=== PATIENT | female | born 1940 | race Caucasian/White ===

== ENCOUNTER 2024-01-18 14:55 | Inpatient (IN) | payer BC, MEDICARE ==
[~2024-01-18] VITALS: Ht 165.1 cm; Wt 58.6 kg
[2024-01-18 15:14] LABS: BASOPHILS % (AUTO) 0.1 % (0.0-2.0); DIFFERENTIAL COMMENT 0; EOSINOPHILS % (AUTO) 0.4 % (0.0-7.0); HEMATOCRIT 29.3 % (31.2-41.9); HEMOGLOBIN 9.9 g/dL (10.9-14.3); LYMPHOCYTES # (AUTO) 0.5 K/uL (0.8-4.8); LYMPHOCYTES % (AUTO) 8.4 % (20.5-51.5); MEAN CORPUSCULAR HEMOGLOBIN 34.4 uug (24.7-32.8); MEAN CORPUSCULAR HGB CONC 34 g/dL (32.3-35.6); MEAN CORPUSCULAR VOLUME 101.2 fL (75.5-95.3); MONOCYTES # (AUTO) 0.5 K/uL (0.1-1.30); MONOCYTES % (AUTO) 7.7 % (0.0-11.0); NEUTROPHILS % (AUTO) 83.4 % (38.5-71.5); PLATELET COUNT (AUTO) 175 K/uL (179-408); RED BLOOD CELL COUNT(AUTO) 2.89 MIL/uL (3.63-4.92); RED CELL DISTRIBUTION WIDTH 12.6 % (12.3-17.7)
[2024-01-18 15:22] LABS: CALCIUM 9.7 mg/dL (8.5-10.1); CARBON DIOXIDE 29 mmol/L (21-32); CHLORIDE 105 mmol/L (98-107); CREATININE 1.3 mg/dL (0.6-1.3); GLUCOSE 95 mg/dL (74-106); POTASSIUM 4.1 mmol/L (3.5-5.1); SODIUM SERUM 141 mmol/L (136-145); UREA NITROGEN, BLOOD 24 mg/dL (7-18)
[2024-01-18] MEDS ORDERED: FLUD0.1T PO (15:23)
[2024-01-18] MEDS ORDERED: SENN8.6T19 PO (15:23)
[2024-01-18] MEDS ORDERED: PYRI60TA PO (15:23)
[2024-01-18] MEDS ORDERED: MIRT-73 PO (15:23)
[2024-01-18] MEDS ORDERED: BOOST VANILLA PO (15:23)
[2024-01-18] MEDS ORDERED: DICLOFENAC 1% GEL (15:23)
[2024-01-18] MEDS ORDERED: BISA-79 PO (15:23)
[2024-01-18] MEDS ORDERED: POLY17PO4 PO (15:23)
[2024-01-18] MEDS ORDERED: AMLO-212 PO (15:23)
[2024-01-18] MEDS ORDERED: MULT-594 PO (15:23)
[2024-01-18] MEDS ORDERED: METH1TAB69 PO (15:23)
[2024-01-18] MEDS ORDERED: ACET325C7 PO (15:23)
[2024-01-18] MEDS ORDERED: MAGN400C PO (15:23)
[2024-01-18] MEDS ORDERED: LEVO75TA7 PO (15:23)
[2024-01-18 15:30] LABS: ALANINE AMINOTRANSFERASE 18 U/L (14-59); ALBUMIN 3.2 g/dL (3.4-5.0); ALKALINE PHOSPHATASE 54 U/L (50-136); ASPARTATE AMINOTRANSFERASE 22 U/L (15-37); BILIRUBIN,DIRECT 0.1 mg/dL (0.0-0.2); BILIRUBIN,TOTAL 0.2 mg/dL (0.2-1.0); TOTAL PROTEIN, SERUM 7.3 g/dL (6.4-8.2)
[2024-01-18 15:48] LABS: *BILIRUBIN,URIN NEGATIVE (NEGATIVE); *BLOOD, URINE NEGATIVE (NEGATIVE); *CLARITY,URINE CLEAR (CLEAR); *COLOR,URINE YELLOW (YELLOW); *KETONES,URINE TRACE (NEGATIVE); *PROTEIN,URINE 1+ (NEGATIVE); *UROBILINOGEN,URINE 0.2 E.U./dl (NORMAL); LEUKOCYTE ESTERASE ,URINE NEGATIVE (NEGATIVE); NITRITE, URINE NEGATIVE (NEGATIVE); UGLUCOSE NEGATIVE (NEGATIVE)
[2024-01-18] MEDS: IV NORMAL SALINE 1000 ML BAG IV ONE (15:49)
[2024-01-18 15:53] LABS: MAGNESIUM 2.2 mg/dL (1.8-2.4)
[2024-01-18 16:21] LABS: IRON, SERUM 38 ug/dL (50-175)
[2024-01-18] MEDS ORDERED: MAG HYDROX/AL HYDROX/SIMETH 30 ML LIQUID UDC ONE (16:24)
[2024-01-18 16:30] LABS: BACTERIA,URINE FEW /HPF (NONE SEEN); RBC,URINE NONE SEEN /HPF (0-3); SQUAMOUS EPITHELIAL CELL,UR FEW /HPF (NONE SEEN); WBC,URINE 0-3 /HPF (0-3)
[2024-01-18 16:31] LABS: URINE AMORPHOUS URATE MODERATE /HPF
[2024-01-18] MEDS ORDERED: MAGNESIUM HYDROXIDE 30 ML LIQUID UDC ONE (16:44)
[2024-01-18] MEDS: MAGNESIUM HYDROXIDE 30 ML LIQUID UDC PO ONE (16:46)
[2024-01-18] MEDS ORDERED: MIRT-93 PO (17:07)
[2024-01-18] MEDS ORDERED: BISACODYL 5 MG TABLET.DR PO PRN (18:30)
[2024-01-18] MEDS ORDERED: Medication Not On Formulary EA (Acetaminophen (Tylenol) 650 MG) PO SCH (18:30)
[2024-01-18] MEDS ORDERED: LORAZEPAM 2 MG/1 ML VIAL IV PRN (18:30)
[2024-01-18] MEDS ORDERED: FLEET ENEMA 133 ML BOTTLE RC PRN (18:30)
[2024-01-18] MEDS ORDERED: ONDANSETRON 4 MG/2 ML VIAL IV PRN (18:30)
[2024-01-18] MEDS ORDERED: TEMAZEPAM 15 MG CAPSULE PO PRN (18:30)
[2024-01-18] MEDS ORDERED: ACETAMINOPHEN 325 MG TABLET PO PRN (18:30)
[2024-01-18 18:45] VITALS: BP 136/57; TEMP 97.6; O2SAT 96
[2024-01-18] MEDS ORDERED: OLANZAPINE 10 MG VIAL IM PRN (20:00)
[2024-01-18 20:14] VITALS: BP 137/65; TEMP 98; O2SAT 96
[2024-01-18] MEDS: PYRIDOSTIGMINE BROMIDE 60 MG TABLET PO SCH (20:33)
[2024-01-18] MEDS: IV D5 1/2 NS 1000 ML 1,000 ML IV PRN (20:43)
[2024-01-18] MEDS: MIRTAZAPINE 15 MG TABLET PO SCH (21:37)
[2024-01-18] MEDS: SENNOSIDES 1 TABLET PO SCH (21:37)
[2024-01-18] MEDS: PIPERACILLIN SODIUM/TAZOBACTAM 3.375 G in IV DEXTROSE 5% 100 ML IV SCH (21:39)
[2024-01-18] MEDS ORDERED: PIPERACILLIN SODIUM/TAZOBACTAM 3.375 G in IV DEXTROSE 5% 50 ML IV SCH (22:00)
[2024-01-19] VITALS (7 sets, daily range): BP systolic 122–142; BP diastolic 63–80; TEMP 97.4–98.3; O2SAT 95–98
[2024-01-19] MEDS: LEVOTHYROXINE SODIUM 75 MCG TABLET PO SCH (06:04)
[2024-01-19 06:57] LABS: BASOPHILS % (AUTO) 0.1 % (0.0-2.0); EOSINOPHILS % (AUTO) 0.3 % (0.0-7.0); HEMATOCRIT 31.8 % (31.2-41.9); HEMOGLOBIN 10.8 g/dL (10.9-14.3); LYMPHOCYTES # (AUTO) 0.5 K/uL (0.8-4.8); LYMPHOCYTES % (AUTO) 8.6 % (20.5-51.5); MEAN CORPUSCULAR HEMOGLOBIN 34.5 uug (24.7-32.8); MEAN CORPUSCULAR HGB CONC 34 g/dL (32.3-35.6); MEAN CORPUSCULAR VOLUME 101.8 fL (75.5-95.3); MONOCYTES # (AUTO) 0.4 K/uL (0.1-1.30); MONOCYTES % (AUTO) 6.8 % (0.0-11.0); NEUTROPHILS # (AUTO) 4.8 K/uL (1.8-8.9); NEUTROPHILS % (AUTO) 84.2 % (38.5-71.5); PLATELET COUNT (AUTO) 188 K/uL (179-408); RED BLOOD CELL COUNT(AUTO) 3.13 MIL/uL (3.63-4.92); RED CELL DISTRIBUTION WIDTH 12.4 % (12.3-17.7); WHITE BLOOD COUNT (AUTO) 5.7 K/uL (3.8-11.8)
[2024-01-19 07:13] LABS: DIFFERENTIAL COMMENT 1
[2024-01-19 07:20] LABS: ALANINE AMINOTRANSFERASE 21 U/L (14-59); ALBUMIN 3.1 g/dL (3.4-5.0); ALKALINE PHOSPHATASE 53 U/L (50-136); ASPARTATE AMINOTRANSFERASE 33 U/L (15-37); BILIRUBIN,TOTAL 0.3 mg/dL (0.2-1.0); CARBON DIOXIDE 28 mmol/L (21-32); CHLORIDE 105 mmol/L (98-107); CHOLESTEROL 185 mg/dL (<200); CREATININE 1.2 mg/dL (0.6-1.3); GLUCOSE 109 mg/dL (74-106); HDL CHOLESTEROL 70 mg/dL (40-60); MAGNESIUM 2.7 mg/dL (1.8-2.4); PHOSPHOROUS 1.8 mg/dL (2.5-4.9); POTASSIUM 3.5 mmol/L (3.5-5.1); SODIUM SERUM 141 mmol/L (136-145); TOTAL PROTEIN, SERUM 7.2 g/dL (6.4-8.2); TRIGLYCERIDES 96 MG/DL (30-150); UREA NITROGEN, BLOOD 17 mg/dL (7-18)
[2024-01-19 07:38] LABS: *OCCULT BLOOD STOOL NEGATIVE (NEGATIVE)
[2024-01-19 07:45] LABS: THYROID STIMULATING HORMONE 3.379 mIU/mL (0.358-3.740)
[2024-01-19] MEDS: FLUDROCORTISONE ACETATE 0.1 MG TABLET PO SCH ×2 (08:25→16:35)
[2024-01-19] MEDS: MIRALAX 17 GM POWD.PACK PO SCH (08:25)
[2024-01-19] MEDS: MULTIVIT, IRON, MIN NO. 8, FA TABLET PO SCH (08:25)
[2024-01-19] MEDS: REMEDY ESSENTIAL ZINC PASTE 113 GM TOP SCH (08:26)
[2024-01-19] MEDS: AMLODIPINE 5 MG TABLET PO SCH (08:29)
[2024-01-19] MEDS ORDERED: MAGNESIUM OXIDE 400 MG TABLET PO SCH ×2 (09:00)
[2024-01-19] MEDS ORDERED: Methenamine Hippurate 1 GM) PO SCH (09:00)
[2024-01-19] MEDS: POTASSIUM PHOSPHATE MM 7.5 MMOL in IV NORMAL SALINE 97.5 ML IV ONE (10:57)
[2024-01-19] MEDS: DOCUSATE SODIUM 100 MG CAPSULE PO SCH (21:59)
[2024-01-20] VITALS (10 sets, daily range): BP systolic 131–162; BP diastolic 63–100; TEMP 97.6–98.1; O2SAT 94–99
[2024-01-20 06:39] LABS: BASOPHILS % (AUTO) 0.3 % (0.0-2.0); EOSINOPHILS # (AUTO) 0.1 K/uL (0.0-0.7); EOSINOPHILS % (AUTO) 1.8 % (0.0-7.0); HEMATOCRIT 34.1 % (31.2-41.9); HEMOGLOBIN 11.2 g/dL (10.9-14.3); LYMPHOCYTES # (AUTO) 1.1 K/uL (0.8-4.8); LYMPHOCYTES % (AUTO) 26.4 % (20.5-51.5); MEAN CORPUSCULAR HEMOGLOBIN 34.6 uug (24.7-32.8); MEAN CORPUSCULAR HGB CONC 33 g/dL (32.3-35.6); MEAN CORPUSCULAR VOLUME 105.7 fL (75.5-95.3); MONOCYTES # (AUTO) 0.4 K/uL (0.1-1.30); MONOCYTES % (AUTO) 10.6 % (0.0-11.0); NEUTROPHILS # (AUTO) 2.4 K/uL (1.8-8.9); NEUTROPHILS % (AUTO) 60.9 % (38.5-71.5); PLATELET COUNT (AUTO) 173 K/uL (179-408); RED BLOOD CELL COUNT(AUTO) 3.23 MIL/uL (3.63-4.92); RED CELL DISTRIBUTION WIDTH 12.9 % (12.3-17.7)
[2024-01-20 06:58] LABS: DIFFERENTIAL COMMENT 1
[2024-01-20 07:18] LABS: CALCIUM 9.1 mg/dL (8.5-10.1); CARBON DIOXIDE 27 mmol/L (21-32); CHLORIDE 108 mmol/L (98-107); CREATININE 1.3 mg/dL (0.6-1.3); GLUCOSE 91 mg/dL (74-106); MAGNESIUM 2.6 mg/dL (1.8-2.4); PHOSPHOROUS 2.6 mg/dL (2.5-4.9); POTASSIUM 3.5 mmol/L (3.5-5.1); SODIUM SERUM 142 mmol/L (136-145); UREA NITROGEN, BLOOD 13 mg/dL (7-18)
[2024-01-20] MEDS: POTASSIUM CHLORIDE 20 MEQ TAB.PRT.SR PO ONE (10:44)
[2024-01-20] MEDS: ENSURE ENLIVE (VAN) 240 ML LIQUID PO SCH (16:32)
[2024-01-21] MEDS ORDERED: LORAZEPAM 2 MG/1 ML VIAL IV PRN (06:30)
[2024-01-21 08:00] VITALS: BP 140/70; TEMP 98; O2SAT 97
[2024-01-21 12:00] VITALS: BP 139/67; TEMP 97.6; O2SAT 96
[2024-01-21 17:16] VITALS: BP 139/68; TEMP 98.4; O2SAT 95
[2024-01-21 20:28] VITALS: BP 150/70; TEMP 97.5; O2SAT 96
[2024-01-22] MEDS ORDERED: LACT-246 PO (10:10)
== END 2024-01-21 20:40 | DRG 73 ==
LOC: ER 14:55 → TELE3 16:52 → MEDSURG3 01-20 09:55
PROVIDERS: ADMIT Internal Medicine; ATTEND Internal Medicine
DX: G90.9 Disorder of the autonomic nervous system, unspecified (principal); G92.8 Other toxic encephalopathy; N17.0 Acute kidney failure with tubular necrosis; A04.9 Bacterial intestinal infection, unspecified; K92.2 Gastrointestinal hemorrhage, unspecified; I95.1 Orthostatic hypotension; K56.41 Fecal impaction; E83.39 Other disorders of phosphorus metabolism; E87.6 Hypokalemia; E78.5 Hyperlipidemia, unspecified; M81.0 Age-related osteoporosis without current pathological fracture; D53.9 Nutritional anemia, unspecified; M15.9 Polyosteoarthritis, unspecified; G30.9 Alzheimer's disease, unspecified; F02.C0 Dementia in other diseases classified elsewhere, severe, without behavioral disturbance, psychotic disturbance, mood disturbance, and anxiety; E03.9 Hypothyroidism, unspecified; Z79.890 Hormone replacement therapy; I34.0 Nonrheumatic mitral (valve) insufficiency; Z87.440 Personal history of urinary (tract) infections; I10 Essential (primary) hypertension
CPT/HCPCS: 36415; 70450; 71045; 74018; 82378; 83550; 83605; 83735; 84100; 84443; 84484; 85025; 85730; 93307; A4663; C1758; G0378; J2543; J3490; J7040

== ENCOUNTER 2024-01-21 15:31 | Inpatient (IN) | payer MEDICARE ==
[~2024-01-21] VITALS: Ht 162.6 cm; Wt 53.2 kg
[~2024-01-21 15:31] MED LIST: ACET325C7 PO; AMLO-212 PO; BISA-79 PO; BOOST VANILLA PO; DICLOFENAC 1% GEL; FLUD0.1T PO; LEVO75TA7 PO; MAGN400C PO; METH1TAB69 PO; MIRT-93 PO; MULT-594 PO; POLY17PO4 PO; PYRI60TA PO; SENN8.6T19 PO
[2024-01-21] MEDS ORDERED: FLEET ENEMA 133 ML BOTTLE RC PRN (22:30)
[2024-01-21] MEDS ORDERED: ONDANSETRON HCL 4 MG TABLET PO PRN (22:30)
[2024-01-21] MEDS ORDERED: OLANZAPINE 2.5 MG TABLET PO SCH (22:30)
[2024-01-21] MEDS: PIPERACILLIN SODIUM/TAZOBACTAM 3.375 G in IV DEXTROSE 5% 50 ML IV SCH ×2 (22:30→23:00)
[2024-01-21] MEDS: DOCUSATE SODIUM 100 MG CAPSULE PO SCH (22:30)
[2024-01-22 01:34] VITALS: BP 152/65; TEMP 98; O2SAT 97
[2024-01-22] MEDS ORDERED: OLANZAPINE 2.5 MG TABLET PO PRN (05:23)
[2024-01-22] MEDS ORDERED: LACT-246 PO (10:10)
[2024-01-22] MEDS ORDERED: BISACODYL 5 MG TABLET.DR PO PRN (10:45)
[2024-01-22] MEDS: MIRALAX 17 GM POWD.PACK PO SCH (10:45)
[2024-01-22] MEDS: FLUDROCORTISONE ACETATE 0.1 MG TABLET PO SCH (11:50)
[2024-01-22] MEDS: LEVOTHYROXINE SODIUM 75 MCG TABLET PO SCH (11:51)
[2024-01-22] MEDS: AMLODIPINE 5 MG TABLET PO SCH (11:51)
[2024-01-22] MEDS: PYRIDOSTIGMINE BROMIDE 60 MG TABLET PO SCH (11:52)
[2024-01-22 16:00] VITALS: BP 166/79
[2024-01-22 16:03] VITALS: BP 127/57; TEMP 98.6; O2SAT 96
[2024-01-22 20:50] VITALS: BP 152/63; TEMP 98.5; O2SAT 96
[2024-01-22] MEDS: MIRTAZAPINE 15 MG TABLET PO SCH (21:46)
[2024-01-22] MEDS: SENNOSIDES 1 TABLET PO SCH (21:47)
[2024-01-22] MEDS: TEMAZEPAM 15 MG CAPSULE PO PRN (23:18)
[2024-01-23 06:13] VITALS: BP 117/68; TEMP 97.6; O2SAT 96
[2024-01-23 09:30] VITALS: BP_SYST 138; BP_SYST 141; BP_SYST 145; BP_DIAS 64; BP_DIAS 76; BP_DIAS 86
[2024-01-23 15:31] VITALS: BP 146/73; TEMP 97.9; O2SAT 96
[2024-01-23 20:03] VITALS: BP 163/108; TEMP 98.6; O2SAT 93
[2024-01-23 20:04] VITALS: BP 149/76; O2SAT 94
[2024-01-23 20:06] VITALS: BP 137/80; O2SAT 96
[2024-01-24 06:58] VITALS: BP 169/72; TEMP 98.4; O2SAT 97
[2024-01-24 08:45] VITALS: BP_SYST 127; BP_SYST 168; BP_SYST 170; BP_DIAS 70; BP_DIAS 86; BP_DIAS 90
[2024-01-24] MEDS: AMLODIPINE 5 MG TABLET PO SCH (08:51)
[2024-01-24 09:35] VITALS: BP 125/62
[2024-01-24 16:00] VITALS: BP 157/77; TEMP 97.9; O2SAT 95
[2024-01-24 17:00] VITALS: BP_SYST 152; BP_SYST 154; BP_SYST 163; BP_DIAS 74; BP_DIAS 78; BP_DIAS 83
[2024-01-24 20:08] VITALS: BP 166/79; TEMP 98.2; O2SAT 94
[2024-01-25] VITALS (7 sets, daily range): BP systolic 128–158; BP diastolic 52–87; TEMP 97.7–98.8; O2SAT 94–95
[2024-01-25] MEDS: ENSURE WITH FIBER 237 ML LIQUID (CHOCOLATE) PO SCH (09:00)
[2024-01-25] MEDS: CLOTRIMAZOLE 1% CREAM 30 GM TUBE TOP SCH (17:29)
[2024-01-26 06:20] VITALS: BP 150/86; TEMP 97.5; O2SAT 94
[2024-01-26 08:45] VITALS: BP_SYST 113; BP_SYST 120; BP_SYST 132; BP_DIAS 56; BP_DIAS 66; BP_DIAS 81
[2024-01-26 16:00] VITALS: BP_SYST 113; BP_SYST 129; BP_SYST 141; BP_DIAS 71; BP_DIAS 74
[2024-01-26 20:00] VITALS: BP 133/55; TEMP 98.1; O2SAT 93
[2024-01-26 22:00] VITALS: BP_SYST 159; BP_SYST 161; BP_SYST 181; BP_DIAS 78; BP_DIAS 88; BP_DIAS 90
[2024-01-27 06:55] VITALS: BP 159/90; TEMP 97.4; O2SAT 96
[2024-01-27 08:00] VITALS: BP_SYST 142; BP_SYST 154; BP_SYST 157; BP_DIAS 72; BP_DIAS 77; BP_DIAS 80
[2024-01-27] MEDS: AMLODIPINE 2.5 MG TABLET PO SCH (08:12)
[2024-01-27] MEDS: CLOTRIMAZOLE/BETAMET DIPROP CREAM 15 GM TUBE TOP SCH (13:49)
[2024-01-27 16:00] VITALS: BP_SYST 126; BP_SYST 147; BP_SYST 152; BP_DIAS 80; BP_DIAS 81; BP_DIAS 86; TEMP 98.3
[2024-01-27 20:00] VITALS: BP_SYST 156; BP_SYST 157; BP_SYST 160; BP_DIAS 70; BP_DIAS 72; BP_DIAS 73
[2024-01-27 20:01] VITALS: BP 160/73; TEMP 98.3; O2SAT 98
[2024-01-28 05:10] VITALS: BP 161/74; TEMP 98.2; O2SAT 95
[2024-01-28 16:12] VITALS: BP 132/66; TEMP 97.9; O2SAT 98
[2024-01-28] MEDS ORDERED: MIRALAX 17 GM POWD.PACK PO PRN (18:45)
[2024-01-28 19:35] VITALS: BP 132/66; TEMP 97.7; O2SAT 97
[2024-01-28 20:00] VITALS: BP_SYST 123; BP_SYST 126; BP_SYST 132; BP_DIAS 60; BP_DIAS 61; BP_DIAS 66
[2024-01-29 06:08] VITALS: BP 187/97; TEMP 97.3; O2SAT 99
[2024-01-29 07:29] LABS: BASOPHILS % (AUTO) 0.2 % (0.0-2.0); EOSINOPHILS # (AUTO) 0.1 K/uL (0.0-0.7); EOSINOPHILS % (AUTO) 1.4 % (0.0-7.0); HEMATOCRIT 28.1 % (31.2-41.9); HEMOGLOBIN 9.9 g/dL (10.9-14.3); LYMPHOCYTES # (AUTO) 0.8 K/uL (0.8-4.8); LYMPHOCYTES % (AUTO) 19.2 % (20.5-51.5); MEAN CORPUSCULAR HEMOGLOBIN 35.1 uug (24.7-32.8); MEAN CORPUSCULAR HGB CONC 35 g/dL (32.3-35.6); MEAN CORPUSCULAR VOLUME 99.6 fL (75.5-95.3); MONOCYTES # (AUTO) 0.3 K/uL (0.1-1.30); MONOCYTES % (AUTO) 7.3 % (0.0-11.0); NEUTROPHILS # (AUTO) 3.2 K/uL (1.8-8.9); NEUTROPHILS % (AUTO) 71.9 % (38.5-71.5); PLATELET COUNT (AUTO) 197 K/uL (179-408); RED BLOOD CELL COUNT(AUTO) 2.82 MIL/uL (3.63-4.92); RED CELL DISTRIBUTION WIDTH 12.5 % (12.3-17.7); WHITE BLOOD COUNT (AUTO) 4.4 K/uL (3.8-11.8)
[2024-01-29 07:37] VITALS: BP 159/78; TEMP 98; O2SAT 96
[2024-01-29 07:41] LABS: DIFFERENTIAL COMMENT 1
[2024-01-29 07:49] LABS: ALANINE AMINOTRANSFERASE 18 U/L (14-59); ALBUMIN 2.6 g/dL (3.4-5.0); ALKALINE PHOSPHATASE 52 U/L (50-136); ASPARTATE AMINOTRANSFERASE 20 U/L (15-37); BILIRUBIN,TOTAL 0.2 mg/dL (0.2-1.0); CALCIUM 9.1 mg/dL (8.5-10.1); CARBON DIOXIDE 30 mmol/L (21-32); CHLORIDE 107 mmol/L (98-107); CREATININE 1.2 mg/dL (0.6-1.3); GLUCOSE 120 mg/dL (74-106); MAGNESIUM 2.2 mg/dL (1.8-2.4); PHOSPHOROUS 2.2 mg/dL (2.5-4.9); SODIUM SERUM 144 mmol/L (136-145); TOTAL PROTEIN, SERUM 6.7 g/dL (6.4-8.2); UREA NITROGEN, BLOOD 20 mg/dL (7-18)
[2024-01-29 07:54] LABS: IRON, SERUM 58 ug/dL (50-175)
[2024-01-29] MEDS: POTASSIUM CHLORIDE 20 MEQ POWDER PACKET PO SCH (12:16)
[2024-01-29 16:00] VITALS: BP 106/49; TEMP 98.1; O2SAT 96
[2024-01-29] MEDS: NEUTRA PHOS PACKET PO ONE (16:03)
[2024-01-29 20:00] VITALS: BP 144/64; TEMP 98.1; O2SAT 95
[2024-01-29 21:49] VITALS: BP_SYST 126; BP_SYST 147; BP_SYST 149; BP_DIAS 63; BP_DIAS 80; BP_DIAS 83
[2024-01-30 06:00] VITALS: BP 162/86; TEMP 98.1; O2SAT 96
[2024-01-30 07:45] LABS: CARBON DIOXIDE 30 mmol/L (21-32); CHLORIDE 108 mmol/L (98-107); CREATININE 1.2 mg/dL (0.6-1.3); GLUCOSE 105 mg/dL (74-106); POTASSIUM 3.3 mmol/L (3.5-5.1); SODIUM SERUM 144 mmol/L (136-145); UREA NITROGEN, BLOOD 22 mg/dL (7-18)
[2024-01-30] MEDS: PROTEIN SUPPLEMENT (PROSTAT) 30 ML LIQUID PO SCH (08:00)
[2024-01-30 09:00] VITALS: BP 108/51
[2024-01-30] MEDS: POTASSIUM CHLORIDE 20 MEQ TAB.PRT.SR PO ONE (13:20)
[2024-01-30 16:28] VITALS: BP 144/71; TEMP 98; O2SAT 98
[2024-01-30] MEDS: REMEDY ESSENTIAL ZINC PASTE 113 GM TOP PRN (21:27)
[2024-01-30 22:44] VITALS: BP 136/62
[2024-01-30 23:00] VITALS: BP 136/65; TEMP 98; O2SAT 94
[2024-01-31] MEDS: hydrALAZINE HCL 25 MG TABLET PO PRN (05:56)
[2024-01-31 06:09] VITALS: BP 177/87; TEMP 98.1; O2SAT 94
[2024-01-31 06:48] VITALS: BP 136/70
[2024-01-31 06:51] VITALS: BP 133/71
[2024-01-31 15:28] VITALS: BP 154/68; TEMP 98.5; O2SAT 95
[2024-01-31] MEDS: CYANOCOBALAMIN 1000 MCG/ML VIAL IM ONE (17:55)
[2024-01-31 20:16] VITALS: BP 172/73; TEMP 98.2; O2SAT 94
[2024-02-01 06:11] VITALS: BP 160/90; TEMP 97.7; O2SAT 95
[2024-02-01 07:53] LABS: BASOPHILS % (AUTO) 0.3 % (0.0-2.0); EOSINOPHILS # (AUTO) 0.1 K/uL (0.0-0.7); EOSINOPHILS % (AUTO) 0.9 % (0.0-7.0); HEMATOCRIT 30.6 % (31.2-41.9); HEMOGLOBIN 10.6 g/dL (10.9-14.3); LYMPHOCYTES # (AUTO) 0.7 K/uL (0.8-4.8); LYMPHOCYTES % (AUTO) 12.7 % (20.5-51.5); MEAN CORPUSCULAR HEMOGLOBIN 34.4 uug (24.7-32.8); MEAN CORPUSCULAR HGB CONC 35 g/dL (32.3-35.6); MEAN CORPUSCULAR VOLUME 99.1 fL (75.5-95.3); MONOCYTES # (AUTO) 0.3 K/uL (0.1-1.30); MONOCYTES % (AUTO) 5.8 % (0.0-11.0); NEUTROPHILS # (AUTO) 4.7 K/uL (1.8-8.9); NEUTROPHILS % (AUTO) 80.3 % (38.5-71.5); PLATELET COUNT (AUTO) 243 K/uL (179-408); RED BLOOD CELL COUNT(AUTO) 3.09 MIL/uL (3.63-4.92); RED CELL DISTRIBUTION WIDTH 12.4 % (12.3-17.7); WHITE BLOOD COUNT (AUTO) 5.9 K/uL (3.8-11.8)
[2024-02-01 07:58] LABS: DIFFERENTIAL COMMENT 1
[2024-02-01 08:16] LABS: ALANINE AMINOTRANSFERASE 17 U/L (14-59); ALBUMIN 3.1 g/dL (3.4-5.0); ALKALINE PHOSPHATASE 59 U/L (50-136); ASPARTATE AMINOTRANSFERASE 18 U/L (15-37); BILIRUBIN,TOTAL 0.3 mg/dL (0.2-1.0); CALCIUM 9.6 mg/dL (8.5-10.1); CARBON DIOXIDE 28 mmol/L (21-32); CHLORIDE 104 mmol/L (98-107); CREATININE 1.1 mg/dL (0.6-1.3); GLUCOSE 99 mg/dL (74-106); PHOSPHOROUS 2.4 mg/dL (2.5-4.9); POTASSIUM 3.1 mmol/L (3.5-5.1); SODIUM SERUM 142 mmol/L (136-145); TOTAL PROTEIN, SERUM 7.4 g/dL (6.4-8.2); UREA NITROGEN, BLOOD 24 mg/dL (7-18)
[2024-02-01] MEDS: FERROUS GLUCONATE 324 MG TABLET PO SCH (08:47)
[2024-02-01] MEDS: POTASSIUM CHLORIDE 20 MEQ TAB.PRT.SR PO ONE (12:14)
[2024-02-01 16:10] VITALS: BP 118/64; TEMP 98.3; O2SAT 95
[2024-02-01] MEDS: NEUTRA PHOS PACKET PO ONE (17:27)
[2024-02-01 20:09] VITALS: BP 138/71; TEMP 98.4; O2SAT 95
[2024-02-02 06:00] VITALS: BP 122/65; TEMP 98.4; O2SAT 97
[2024-02-02 16:08] VITALS: BP 110/66; TEMP 98.3; O2SAT 96
[2024-02-02 20:00] VITALS: BP 154/78; TEMP 98.3; O2SAT 95
[2024-02-02 20:30] VITALS: BP 142/77; O2SAT 95
[2024-02-03 06:00] VITALS: BP 152/78; TEMP 97.9; O2SAT 100
[2024-02-03 15:39] VITALS: BP 123/65; TEMP 97.9; O2SAT 98
[2024-02-03 20:00] VITALS: BP 149/79; TEMP 98.2; O2SAT 97
[2024-02-04 06:00] VITALS: BP 151/86; TEMP 98.1; O2SAT 95
[2024-02-04 11:16] VITALS: BP 102/52; TEMP 98; O2SAT 97
[2024-02-04 16:30] VITALS: BP 124/64; TEMP 98; O2SAT 94
[2024-02-04 20:00] VITALS: BP 143/80; TEMP 97.7; O2SAT 98
[2024-02-05 06:00] VITALS: BP 151/62; TEMP 98; O2SAT 99
[2024-02-05 15:30] VITALS: BP 105/56; TEMP 98; O2SAT 95
== END 2024-02-05 16:00 | DRG 91 ==
PROVIDERS: ADMIT Physical Medicine & Rehabilitation Pain Medicine; ATTEND Physical Medicine & Rehabilitation Pain Medicine
DX: G92.8 Other toxic encephalopathy (principal); E43 Unspecified severe protein-calorie malnutrition; N17.0 Acute kidney failure with tubular necrosis; D68.59 Other primary thrombophilia; R53.1 Weakness; R55 Syncope and collapse; D53.9 Nutritional anemia, unspecified; E03.9 Hypothyroidism, unspecified; E83.39 Other disorders of phosphorus metabolism; F02.80 Dementia in other diseases classified elsewhere, unspecified severity, without behavioral disturbance, psychotic disturbance, mood disturbance, and anxiety; G30.9 Alzheimer's disease, unspecified; G90.9 Disorder of the autonomic nervous system, unspecified; I95.1 Orthostatic hypotension; M81.0 Age-related osteoporosis without current pathological fracture; E27.9 Disorder of adrenal gland, unspecified; E78.5 Hyperlipidemia, unspecified; I11.0 Hypertensive heart disease with heart failure; I50.9 Heart failure, unspecified; Z78.1 Physical restraint status; K59.00 Constipation, unspecified; E87.6 Hypokalemia; Z88.5 Allergy status to narcotic agent; Z88.8 Allergy status to other drugs, medicaments and biological substances
CPT/HCPCS: 36415; 83550; 83735; 84100; 85025; A4663; J2543; J3420